=== PATIENT | female | born 1980 | race African-American/Black ===

== ENCOUNTER → 2017-01-13 | Outpatient (CLI) | payer OTHER ==
[~2017-01-13] MED LIST: GLYB2.5T2 PO; METF500T4 PO
--- NOTE | 2017-01-13 14:16 | RAD ---
UPPER EXT JOINT WO CONT LEFT dated 01/13/2017 1:00 PM Indication: LEFT SHOULDER PAIN WITH LROM, NO SX HX, NO PRIORS instability possible rotator cuff tear, pain. Comparison: No comparison is available. Technique: Routine multiplanar multisequence imaging performed. No contrast administered. Findings: Study is limited due to motion artifact. Intermediate T2 signal throughout the supraspinatus and infraspinatus portions of the rotator cuff. There is mild articular surface fraying of the anterior supraspinatus foot plate that extends 50 percent thickness or less. No full-thickness tear or cuff retraction. Subscapularis is intact. Mild hypertrophic change of the acromioclavicular joint. No significant undersurface spurring. Trace amount of subacromial/subdeltoid bursal fluid. Mild increased signal within the marrow of the distal clavicle and acromion. No erosive changes are seen. Glenoid labrum is not well evaluated due to motion artifact on the axial sequences. No apparent labral tear or perilabral cyst. No glenohumeral joint effusion. Biceps tendon is grossly intact. Impression: 1. Limited exam due to motion artifact and poor signal. Biceps tendon and glenoid labrum are not well evaluated. 2. Rotator cuff tendinopathy with mild to moderate articular surface partial tearing of the anterior supraspinatus footplate. No full-thickness tear or cuff retraction. 3. Mild AC joint arthropathy with mild edema in the marrow of the distal clavicle and acromion. Consider associated clavicular osteolysis. Electronically signed by: Fausto Roth MD (01/13/2017 2:12 PM)
== END | disposition home or self-care (01) ==
LOC: MRI 12:05
PROVIDERS: ATTEND Family Medicine
DX: M75.102 Unspecified rotator cuff tear or rupture of left shoulder, not specified as traumatic (principal); M12.812 Other specific arthropathies, not elsewhere classified, left shoulder
CPT/HCPCS: 73221